=== PATIENT | female | born 1975 | race Caucasian/White ===

== ENCOUNTER 2018-12-19 19:35 | Emergency (ER) | payer SELFPAY ==
[~2018-12-19] VITALS: Ht 162.6 cm; Wt 63.5 kg
--- NOTE | 2018-12-19 19:49 | NUR ---
ED Nurse Note: PAtient raciela RA [id number] from the [facility] c/o ETOH, states "i drank enough to lose myself" states that she is having alcohol withdrawal
[2018-12-19 19:51] VITALS: BP 132/80
[2018-12-19 20:39] LABS: APPEARANCE,URINE SLIGHTLY CLOUDY; BILIRUBIN, URINE NEGATIVE (NEGATIVE); COLOR,URINE PALE YELLOW; GLUCOSE, URINE (UA) NEGATIVE (NEGATIVE); KETONES,URINE NEGATIVE (NEGATIVE); LEUKOCYTE ESTERASE ,URINE 3+ (NEGATIVE); NITRITE,URINE POSITIVE (NEGATIVE); PH,URINE 6.5 (4.5-8.0); PROTEIN,URINE 2+ (NEGATIVE); UROBILINOGEN,URINE NORMAL MG/DL (0.0-1.0)
[2018-12-19 20:44] LABS: BASOPHILS % (AUTO) 1.7 % (0.0-2.0); EOSINOPHILS % (AUTO) 0.5 % (0.0-3.0); HEMATOCRIT 38.8 % (37.0-47.0); HEMOGLOBIN 13.1 G/DL (12.0-16.0); LYMPHOCYTES % (AUTO) 29.3 % (20.0-45.0); MEAN CORPUSCULAR VOLUME 93 FL (80-99); MONOCYTES % (AUTO) 14.8 % (1.0-10.0); NEUTROPHILS % (AUTO) 53.7 % (45.0-75.0); PLATELET COUNT 175 K/UL (150-450); RED BLOOD COUNT 4.16 M/UL (4.20-5.40); RED CELL DISTRIBUTION WIDTH 14.7 % (11.6-14.8)
[2018-12-19 20:46] LABS: ANION GAP 11 mmol/L (5-15); BLOOD UREA NITROGEN 8 mg/dL (7-18); CALCIUM 9.2 MG/DL (8.5-10.1); CARBON DIOXIDE 28 MMOL/L (21-32); CHLORIDE 101 MMOL/L (98-107); CREATININE 0.7 MG/DL (0.55-1.30); POTASSIUM 4.2 MMOL/L (3.5-5.1); SODIUM 140 MMOL/L (136-145)
[2018-12-19 20:52] LABS: ALANINE AMINOTRANSFERASE 77 U/L (12-78); ALBUMIN 4.1 G/DL (3.4-5.0); ALKALINE PHOSPHATASE 81 U/L (46-116); ASPARTATE AMINO TRANSFERASE 76 U/L (15-37); BILIRUBIN,TOTAL 0.3 MG/DL (0.2-1.0)
--- NOTE | 2018-12-19 20:52 | Emergency Room Report ---
History of Present Illness General Chief Complaint: Alcohol Intoxication Source: Patient (Brittney Srinivasan) Present Illness HPI 33-year-old female presents to the emergency department for relapse of alcohol dependency. Patient reports that she's been binging 3 large bottles of wine 3 times a day for the past 3 weeks and she was previously 20 years sober. Patient does endorse history of enlarged liver denies heart problems, TBI, seizures or withdrawal seizures. Patient reports she is also supposed to be taking Paxil and gabapentin she states that she stop cold turkey both medications 1 week ago as she had reason to believe that she was 2 weeks with twins. She denies abdominal pain or tenderness denies nausea, vomiting, fevers, chills she denies recent trauma or fall, headache, dizziness, chest pain or palpitations. Patient denies shortness of breath. She denies vaginal bleeding or discharge. Denies SI/HI or drug use. (Brittney Srinivasan) Allergies: Coded Allergies: No Known Allergies (Unverified , 12/19/18) Patient History Past Medical History: see triage record, other - ETOH Dependence Past Surgical History: none Pertinent Family History: none Social History: Reports: alcohol use Last Menstrual Period: n/a Reviewed Nursing Documentation: PMH: Agreed; PSxH: Agreed (Brittney Srinivasan) Review of Systems All Other Systems: negative except mentioned in HPI (Brittney Srinivasan) Physical Exam Vital Signs Date Time Temp Pulse Resp B/P (MAP) Pulse Ox O2 Delivery O2 Flow Rate FiO2 12/19/18 19:30 97.9 100 16 132/80 96 Room Air Sp02 EP Interpretation: reviewed, normal General Appearance: no apparent distress, alert, GCS 15, non-toxic Head: normocephalic, atraumatic Eyes: bilateral eye normal inspection, bilateral eye PERRL ENT: hearing grossly normal, normal voice Neck: full range of motion, no bony tend Respiratory: chest non-tender, lungs clear, normal breath sounds, no wheezing, speaking full sentences Cardiovascular #1: regular rate, rhythm, no edema Gastrointestinal: normal bowel sounds, non tender, soft, non-distended Musculoskeletal: back normal, gait/station normal, normal range of motion, non- tender Neurologic: alert, oriented x3, responsive, motor strength/tone normal, sensory intact, speech normal, grossly normal Psychiatric: judgement/insight normal Skin: no rash, warm/dry, well hydrated, other - multiple large bruises on the Right upper thigh, bilateral arms. (Brittney Srinivasan) Medical Decision Making PA Attestation Dr. majano is my supervising Physician whom patient management has been discussed with. (Brittney Srinivasan) Diagnostic Impression: Primary Impression: Acute alcoholic intoxication Qualified Codes: F10.920 - Alcohol use, unspecified with intoxication, uncomplicated ER Course 33-year-old female presents to the emergency department for relapse of alcohol dependency. Patient reports that she's been binging 3 large bottles of wine 3 times a day for the past 3 weeks and she was previously 20 years sober. Patient does endorse history of enlarged liver denies heart problems, TBI, seizures or withdrawal seizures. Patient reports she is also supposed to be taking Paxil and gabapentin she states that she stop cold turkey both medications 1 week ago as she had reason to believe that she was 2 weeks with twins. She denies abdominal pain or tenderness denies nausea, vomiting, fevers, chills she denies recent trauma or fall, headache, dizziness, chest pain or palpitations. Patient denies shortness of breath. She denies vaginal bleeding or discharge. Denies SI/HI or drug use. Pt has flat affect. non-aggressive, normal though process, and normal memory. Ddx considered but are not limited to OD, SI/HI, psychosis, UTI, intoxication Vital signs: are WNL, pt. is afebrile H&PE are most consistent with behavioral/mental health issue ORDERS: -CBC, CMP: Unremarkable -UA: negative for infection/ unremarkable see results attached. -UDS: Negative -Salicylates and Acetaminophen -WNL -Serum ETOH - 398 -Urine HCG: NEGATIVE ED INTERVENTIONS: - None required at this time . - Observation for pt. to detoxify. DISPOSITION: Pending sobriety, pt. signed out to on-coming attending physician Dr. Goldman Labs Test 12/19/18 20:15 White Blood Count 4.0 K/UL (4.8-10.8) Red Blood Count 4.16 M/UL (4.20-5.40) Hemoglobin 13.1 G/DL (12.0-16.0) Hematocrit 38.8 % (37.0-47.0) Mean Corpuscular Volume 93 FL (80-99) Mean Corpuscular Hemoglobin 31.5 PG (27.0-31.0) Mean Corpuscular Hemoglobin Concent 33.8 G/DL (32.0-36.0) Red Cell Distribution Width 14.7 % (11.6-14.8) Platelet Count 175 K/UL (150-450) Mean Platelet Volume 6.3 FL (6.5-10.1) Neutrophils (%) (Auto) 53.7 % (45.0-75.0) Lymphocytes (%) (Auto) 29.3 % (20.0-45.0) Monocytes (%) (Auto) 14.8 % (1.0-10.0) Eosinophils (%) (Auto) 0.5 % (0.0-3.0) Basophils (%) (Auto) 1.7 % (0.0-2.0) Urine Color Pale yellow Urine Appearance Slightly cloudy Urine pH 6.5 (4.5-8.0) Urine Specific [place] 1.005 (1.005-1.035) Urine Protein 2+ (NEGATIVE) Urine Glucose (UA) Negative (NEGATIVE) Urine Ketones Negative (NEGATIVE) Urine Blood 4+ (NEGATIVE) Urine Nitrite Positive (NEGATIVE) Urine Bilirubin Negative (NEGATIVE) Urine Urobilinogen Normal MG/DL (0.0-1.0) Urine Leukocyte Esterase 3+ (NEGATIVE) Urine RBC 10-15 /HPF (0 - 2) Urine WBC 5-10 /HPF (0 - 2) Urine Squamous Epithelial Cells Few /LPF (NONE/OCC) Urine Bacteria Many /HPF (NONE) Urine HCG, Qualitative Negative (NEGATIVE) Sodium Level 140 MMOL/L (136-145) Potassium Level 4.2 MMOL/L (3.5-5.1) Chloride Level 101 MMOL/L (98-107) Carbon Dioxide Level 28 MMOL/L (21-32) Anion Gap 11 mmol/L (5-15) Blood Urea Nitrogen 8 mg/dL (7-18) Creatinine 0.7 MG/DL (0.55-1.30) Estimat Glomerular Filtration Rate > 60 mL/min (>60) Glucose Level 134 MG/DL (74-106) Calcium Level 9.2 MG/DL (8.5-10.1) Phosphorus Level 4.0 MG/DL (2.5-4.9) Magnesium Level 2.5 MG/DL (1.8-2.4) Total Bilirubin 0.3 MG/DL (0.2-1.0) Aspartate Amino Transf (AST/SGOT) 76 U/L (15-37) Alanine Aminotransferase (ALT/SGPT) 77 U/L (12-78) Alkaline Phosphatase 81 U/L (46-116) Total Protein 8.4 G/DL (6.4-8.2) Albumin 4.1 G/DL (3.4-5.0) Globulin 4.3 g/dL Albumin/Globulin Ratio 1.0 (1.0-2.7) Salicylates Level 0.9 ug/mL (2.8-20) Urine Opiates Screen Negative (NEGATIVE) Acetaminophen Level < 2 MCG/ML (10-30) Urine Barbiturates Screen Negative (NEGATIVE) Phencyclidine (PCP) Screen Negative (NEGATIVE) Urine Amphetamines Screen Negative (NEGATIVE) Urine Benzodiazepines Screen Negative (NEGATIVE) Urine Cocaine Screen Negative (NEGATIVE) Urine Marijuana (THC) Screen Negative (NEGATIVE) Serum Alcohol 392 mg/dL (Brittney Srinivasan) ER Course Patient presents with acute alcohol intoxication. Even know her alcohol level is elevated, after a few hours, patient becoming tremulous. I gave her Librium here. She called her friend who will be picking her up. I suspect that the patient been drinking daily instead of one day. (Ole Goldman MD) Last Vital Signs Date Time Temp Pulse Resp B/P (MAP) Pulse Ox O2 Delivery O2 Flow Rate FiO2 12/19/18 19:51 97.9 100 16 132/80 96 Room Air (Brittney Srinivasan) Status: improved (Ole Goldman MD) Disposition: HOME, SELF-CARE Condition: Stable Signed Out To: Dr. Goldman (Brittney Srinivasan) Scripts Chlordiazepoxide (Chlordiazepoxide HCl) 25 Mg Capsule 25 MG ORAL THREE TIMES A DAY, #15 CAP 0 Refills Prov: Ole Goldman MD 12/19/18 Patient Instructions: Alcohol Intoxication, [id number] Additional Instructions: Abstain from alcohol. Follow-up with rehabilitation within a week. Return if worse. Brittney Srinivasan Dec 19, 2018 20:52 Ole Goldman MD Dec 19, 2018 23:02
[2018-12-19] MEDS ORDERED: chlordiazePOXIDE 25mg Cap ORAL ONE (23:00)
[2018-12-19] MEDS ORDERED: LIBRIUM25 MG ORAL (23:01)
[2018-12-19 23:31] VITALS: BP 135/80
--- NOTE | 2018-12-19 23:31 | NUR ---
ER DISCHARGE NOTE: Patient is cleared to be discharged per ERMD, pt is aox4, on room air, with stable vital signs. pt friend shilo was given dc and prescription instructions, pt and her friend shilo was able to verbalize understanding, pt id band. pt is able to ambulate with steady gait. pt took all belongings. pt friend shilo came to pick her up.
== END 2018-12-19 23:30 | disposition home or self-care (01) ==
LOC: EDBD 19:35 → EMR 19:53
DX: F10.920 Alcohol use, unspecified with intoxication, uncomplicated (principal); Y90.8 Blood alcohol level of 240 mg/100 ml or more
CPT/HCPCS: 36415; 80053; 80307; 81003; 81025; 82962; 83735; 84100; 85025; 87086; 99284; G0480; 80329